=== PATIENT | male | born 1995 | race Caucasian/White ===

== ENCOUNTER 2017-02-02 19:58 | Emergency (ER) | payer SELFPAY ==
[~2017-02-02] VITALS: Ht 172.7 cm; Wt 79.7 kg
[2017-02-02 20:00] VITALS: BP 145/84
[2017-02-02] MEDS ORDERED: LIDOCAINE 1%, 20ML ONE (22:13)
[2017-02-02] MEDS ORDERED: LIDOCAINE 1%, 20ML SQ ONE (22:30)
== END 2017-02-02 22:56 | disposition home or self-care (01) ==
LOC: ED 22:50
DX: S61.412A Laceration without foreign body of left hand, initial encounter (principal); W26.0XXA Contact with knife, initial encounter; Y93.89 Activity, other specified; Y99.8 Other external cause status; Y92.090 Kitchen in other non-institutional residence as the place of occurrence of the external cause
CPT/HCPCS: 12002; 99283; J3490